=== PATIENT | female | born 1950 | race Caucasian/White ===

== ENCOUNTER 2016-09-19 23:15 | Emergency (ER) | payer OTHER ==
[~2016-09-19] VITALS: Ht 157.5 cm; Wt 122.5 kg
[~2016-09-19 23:15] MED LIST: ALB5IS BC; ASPI81CH43 PO; BACL-63 PO; FLUT110A INH; FURO40TA PO; GABA300C8 PO; GLIP-115 PO; LISI-275 PO; LORA1TAB12 PO; LOVA20TA4 PO; METF-312 PO; MONT10TA34 PO; NOR10T PO; PANT40TA2 PO; POT20T PO; PRED-188 PO; Pantoprazole Sodium Sesquihydr PO; ROFL1TAB2 PO; SULF-98 PO; VER40T PO
[2016-09-20] MEDS ORDERED: LISI2.5T47 PO (00:10)
[2016-09-20] MEDS ORDERED: DIAZ10TA PO (00:10)
[2016-09-20] MEDS ORDERED: CLIN1CAP4 PO (00:10)
[2016-09-20] MEDS ORDERED: MORPHINE SULF INJ 2 MG/ML SYRINGE 1ML IM ONE (03:45)
[2016-09-20] MEDS ORDERED: predniSONE 20 MG TAB PO ONE (03:45)
[2016-09-20 04:12] VITALS: BP 140/66
== END 2016-09-20 04:21 | disposition home or self-care (01) ==
LOC: ER 23:16
DX: J44.1 Chronic obstructive pulmonary disease with (acute) exacerbation (principal); J06.9 Acute upper respiratory infection, unspecified; J45.909 Unspecified asthma, uncomplicated; M54.9 Dorsalgia, unspecified; G89.29 Other chronic pain; F41.9 Anxiety disorder, unspecified; I25.10 Atherosclerotic heart disease of native coronary artery without angina pectoris; J44.9 Chronic obstructive pulmonary disease, unspecified; E11.22 Type 2 diabetes mellitus with diabetic chronic kidney disease; E78.5 Hyperlipidemia, unspecified; I13.0 Hypertensive heart and chronic kidney disease with heart failure and stage 1 through stage 4 chronic kidney disease, or unspecified chronic kidney disease; N18.9 Chronic kidney disease, unspecified; I50.9 Heart failure, unspecified; Z90.49 Acquired absence of other specified parts of digestive tract; E07.9 Disorder of thyroid, unspecified; Z98.51 Tubal ligation status
CPT/HCPCS: 93005; 96372; 99283; J2270; J7512

== ENCOUNTER 2016-09-30 23:31 | Emergency (ER) | payer OTHER ==
[~2016-09-30] VITALS: Ht 162.6 cm; Wt 89.8 kg
[~2016-09-30 23:31] MED LIST changes: +CLIN1CAP4 PO; +DIAZ10TA PO; +LISI2.5T47 PO
[2016-09-30] MEDS ORDERED: methylPREDNISolone SOD SUCC 125 MG/2 ML VL IV ONE (23:45)
[2016-10-01 00:06] LABS: Basophils # (auto) 0.1 uL; Basophils % (auto) 0.7 % (0.0-2.0); Eosinophils # (auto) 0.2 uL; Eosinophils % (auto) 2.2 % (0.0-7.0); Hematocrit 32.9 % (36.0-46.0); Hemoglobin 10.6 g/dL (12.2-16.2); Lymphocytes # (auto) 2.2 uL; Lymphocytes % (auto) 29.6 % (10.0-50.0); Mean Corpuscular Hemoglobin 27.2 pg (28.0-32.0); Mean Corpuscular Hgb Conc. 32.3 g/dL (32.0-36.0); Mean Corpuscular Volume 84.2 fL (80.0-100.0); Mean Platelet Volume 11.1 fL (7.4-10.4); Monocytes # (auto) 0.5 uL; Monocytes % (auto) 7.4 % (0.0-12.0); Neutrophils # (auto) 4.4 uL; Neutrophils % (auto) 60.1 % (37.0-80.0); Platelet Count (auto) 142 10^3/uL (140-450); Red Cell Distribution Width 13.1 % (11.6-16.0); White Blood Cell 7.4 10^3/uL (4.4-10.8)
[2016-10-01] MEDS ORDERED: MORPHINE SULF INJ 2 MG/ML SYRINGE 1ML ONE (00:22)
[2016-10-01 00:24] LABS: Albumin 3.4 g/dL (3.4-5.0); BUN/Creatinine Ratio 25.8; Calcium 8.2 mg/dL (8.5-10.1); Magnesium 1.9 mg/dL (1.6-2.6)
[2016-10-01 00:27] LABS: Bilirubin, Total 0.5 mg/dL (0.2-1.0); Total Protein 7.3 g/dL (6.4-8.2)
[2016-10-01] MEDS ORDERED: ONDANSETRON HCL 4 MG/2 ML VIAL IV ONE ×2 (00:30→04:15)
[2016-10-01] MEDS ORDERED: MORPHINE SULF INJ 2 MG/ML SYRINGE 1ML IV ONE ×2 (00:30→00:45)
[2016-10-01 00:31] LABS: B-Type Natriuretic Peptide 422.35 pg/mL (0-100); Temperature: 21.6 C (20.0-25.0)
[2016-10-01 00:38] LABS: INR 1.04 (0.9-1.15); Partial Thromboplastin Time 31.5 sec (22.64-33.71); Prothrombin Time 10.7 sec (9.37-12.3)
[2016-10-01] MEDS ORDERED: FUROSEMIDE 20 MG/2 ML VIAL IV ONE (04:15)
[2016-10-01] MEDS ORDERED: MORPHINE SULFATE 4 MG/ML SYRG IV ONE (04:15)
[2016-10-01 04:20] VITALS: BP 158/91
[2016-10-01 05:08] LABS: Urine Bilirubin Negative (Negative); Urine Blood Negative /uL (Negative); Urine Color Yellow (Yellow); Urine Glucose Normal (Normal); Urine Ketone Negative (Negative); Urine Nitrite Negative (Negative); Urine RBC <1 /hpf (0 - 4); Urine Squamous Epithelial Cell FEW /hpf (<5); Urine Urobilinogen Normal (Negative); Urine pH 5.5 (5.0-8.0)
[2016-10-01] MEDS ORDERED: ALBUTEROL SULF 2.5 MG/0.5ML(0.5%) NEB SOLN NEB ONE (05:45)
[2016-10-01] MEDS ORDERED: LEVOFLOXACIN 500 MG TAB PO ONE (05:45)
[2016-10-01] MEDS ORDERED: ASPirin 81 mg TAB ONE (13:39)
== END 2016-10-01 07:42 | disposition home or self-care (01) ==
LOC: EDBD 23:31 → ER 23:34
DX: J44.1 Chronic obstructive pulmonary disease with (acute) exacerbation (principal); J45.901 Unspecified asthma with (acute) exacerbation; E66.01 Morbid (severe) obesity due to excess calories; E11.22 Type 2 diabetes mellitus with diabetic chronic kidney disease; I12.9 Hypertensive chronic kidney disease with stage 1 through stage 4 chronic kidney disease, or unspecified chronic kidney disease; N18.9 Chronic kidney disease, unspecified; I25.10 Atherosclerotic heart disease of native coronary artery without angina pectoris; E78.5 Hyperlipidemia, unspecified; E07.9 Disorder of thyroid, unspecified; Z98.61 Coronary angioplasty status
CPT/HCPCS: 36415; 71010; 80053; 81001; 83605; 83735; 83880; 84484; 85025; 85049; 85379; 85610; 85730; 87040; 93005; 94640; 94761; 96374; 96375; 96376; 99285; J1940; J2270; J2405; J2930

== ENCOUNTER 2017-02-16 18:38 | Emergency (ER) | payer OTHER ==
[~2017-02-16] VITALS: Ht 162.6 cm; Wt 99.8 kg
[~2017-02-16 18:38] MED LIST changes: +GABA-497 PO; -GABA300C8 PO; -METF-312 PO; +METF-370 PO
[2017-02-16] MEDS ORDERED: IPRATROPIUM BROM 0.5 MG/2.5ML INH SOL NEB ONE (20:00)
[2017-02-16] MEDS ORDERED: MORPHINE SULFATE 4 MG/ML SYRG IV ONE (20:00)
[2017-02-16] MEDS ORDERED: ONDANSETRON HCL 4 MG/2 ML VIAL IV ONE (20:00)
[2017-02-16] MEDS ORDERED: ALBUTEROL SULF 2.5 MG/0.5ML(0.5%) NEB SOLN NEB ONE (20:00)
[2017-02-16] MEDS ORDERED: diphenhdrAMINE HCL 50 MG/1 ML VL ONE (20:36)
[2017-02-16 20:40] LABS: Basophils # (auto) 0 uL; Basophils % (auto) 0.3 % (0.0-2.0); Eosinophils # (auto) 0 uL; Hematocrit 34.9 % (36.0-46.0); Hemoglobin 11.5 g/dL (12.2-16.2); Lymphocytes # (auto) 0.6 uL; Lymphocytes % (auto) 5.7 % (10.0-50.0); Mean Corpuscular Hemoglobin 28.4 pg (28.0-32.0); Mean Corpuscular Volume 85.8 fL (80.0-100.0); Mean Platelet Volume 11.8 fL (7.4-10.4); Monocytes # (auto) 0.2 uL; Monocytes % (auto) 1.8 % (0.0-12.0); Neutrophils # (auto) 10.4 uL; Neutrophils % (auto) 92.2 % (37.0-80.0); Platelet Count (auto) 153 10^3/uL (140-450); Red Cell Distribution Width 14.4 % (11.6-16.0); White Blood Cell 11.3 10^3/uL (4.4-10.8)
[2017-02-16] MEDS ORDERED: AZITHROMYCIN 500MG/D5W 250ML 250 ML IV ONE (21:15)
[2017-02-16 21:19] LABS: Temperature: 23.5 C (20.0-25.0)
[2017-02-16] MEDS ORDERED: diphenhdrAMINE HCL 50 MG/1 ML VL IV ONE (21:30)
[2017-02-16 21:52] LABS: Albumin 3.4 g/dL (3.4-5.0); Alkaline Phosphatase 58 U/L (45-117); Anion Gap 6 (5-15); Aspartate Aminotransferase 9 U/L (15-37); BUN/Creatinine Ratio 33.8; Bilirubin, Total 0.4 mg/dL (0.2-1.0); Blood Urea Nitrogen 25 mg/dL (7-18); Carbon Dioxide 31 mmol/L (21-32); Chloride 107 mmol/L (98-107); GFR African American 101 mL/min; GFR Non-African American 83 mL/min; Glucose 151 mg/dL (74-106); Magnesium 2.2 mg/dL (1.6-2.6); Potassium 4.9 mmol/L (3.5-5.1); Sodium 144 mmol/L (136-145); Total Protein 6.8 g/dL (6.4-8.2)
[2017-02-16] MEDS ORDERED: HYDROmorphone HCL 2 MG/ML VL IV ONE (22:30)
[2017-02-17] VITALS: BP 147/77
== END 2017-02-17 01:44 | disposition home or self-care (01) ==
LOC: EDBD 18:38 → ER 18:41
DX: J44.1 Chronic obstructive pulmonary disease with (acute) exacerbation (principal); E11.9 Type 2 diabetes mellitus without complications; I11.0 Hypertensive heart disease with heart failure; I50.43 Acute on chronic combined systolic (congestive) and diastolic (congestive) heart failure; H66.92 Otitis media, unspecified, left ear; R51 Headache; E78.5 Hyperlipidemia, unspecified; E07.9 Disorder of thyroid, unspecified; Z98.51 Tubal ligation status; Z79.899 Other long term (current) drug therapy; Z88.0 Allergy status to penicillin; Z88.1 Allergy status to other antibiotic agents
CPT/HCPCS: 36415; 71010; 80053; 83735; 83880; 84443; 84484; 85025; 85379; 93005; 94640; 96365; 96366; 96375; 99291; J0456; J1170; J1200; J2270; J2405

== ENCOUNTER 2017-03-04 19:02 | Emergency (ER) | payer OTHER ==
[~2017-03-04] VITALS: Ht 162.6 cm; Wt 122.5 kg
[2017-03-04 19:42] LABS: Basophils # (auto) 0 uL; Basophils % (auto) 0.1 % (0.0-2.0); CONDITION Y; Eosinophils # (auto) 0 uL; Eosinophils % (auto) 0.1 % (0.0-7.0); Hematocrit 35.1 % (36.0-46.0); Hemoglobin 11.7 g/dL (12.2-16.2); Lymphocytes # (auto) 0.8 uL; Lymphocytes % (auto) 7.8 % (10.0-50.0); Mean Corpuscular Hemoglobin 28.2 pg (28.0-32.0); Mean Corpuscular Hgb Conc. 33.2 g/dL (32.0-36.0); Mean Corpuscular Volume 84.8 fL (80.0-100.0); Mean Platelet Volume 12.1 fL (7.4-10.4); Monocytes # (auto) 0.1 uL; Monocytes % (auto) 1.2 % (0.0-12.0); Neutrophils # (auto) 9.2 uL; Neutrophils % (auto) 90.8 % (37.0-80.0); Platelet Count (auto) 153 10^3/uL (140-450); Red Cell Distribution Width 13.8 % (11.6-16.0); White Blood Cell 10.1 10^3/uL (4.4-10.8)
[2017-03-04 20:05] LABS: Albumin 3.4 g/dL (3.4-5.0); Anion Gap 12 (5-15); Aspartate Aminotransferase 14 U/L (15-37); Blood Urea Nitrogen 24 mg/dL (7-18); Calcium 8.8 mg/dL (8.5-10.1); Carbon Dioxide 27 mmol/L (21-32); Chloride 103 mmol/L (98-107); GFR African American 71 mL/min; GFR Non-African American 59 mL/min; Glucose 193 mg/dL (74-106); Magnesium 1.7 mg/dL (1.6-2.6); Sodium 142 mmol/L (136-145)
[2017-03-04 20:09] LABS: Alkaline Phosphatase 62 U/L (45-117); Bilirubin, Total 0.5 mg/dL (0.2-1.0); Total Protein 7.1 g/dL (6.4-8.2)
[2017-03-04] MEDS ORDERED: IPRATROPIUM BROM 0.5 MG/2.5ML INH SOL NEB ONE (20:30)
[2017-03-04] MEDS ORDERED: ALBUTEROL SULF 2.5 MG/0.5ML(0.5%) NEB SOLN NEB ONE (20:30)
[2017-03-04] MEDS ORDERED: HYDROcodone-ACET 10/325MG TAB PO ONE (22:30)
[2017-03-04] MEDS ORDERED: CLINDAMYCIN HCL 150 MG CAP PO ONE (22:45)
[2017-03-04 23:41] VITALS: BP 134/89
== END 2017-03-05 00:12 | disposition home or self-care (01) ==
LOC: EDBD 19:02 → ER 19:06
DX: H66.92 Otitis media, unspecified, left ear (principal); J02.9 Acute pharyngitis, unspecified; J06.9 Acute upper respiratory infection, unspecified; R07.0 Pain in throat; I25.10 Atherosclerotic heart disease of native coronary artery without angina pectoris; I50.9 Heart failure, unspecified; N18.9 Chronic kidney disease, unspecified; J44.9 Chronic obstructive pulmonary disease, unspecified; E11.22 Type 2 diabetes mellitus with diabetic chronic kidney disease; E78.5 Hyperlipidemia, unspecified; I13.0 Hypertensive heart and chronic kidney disease with heart failure and stage 1 through stage 4 chronic kidney disease, or unspecified chronic kidney disease; E07.9 Disorder of thyroid, unspecified; Z90.710 Acquired absence of both cervix and uterus; Z98.51 Tubal ligation status; Z88.0 Allergy status to penicillin; Z88.1 Allergy status to other antibiotic agents; Z79.899 Other long term (current) drug therapy; Z98.61 Coronary angioplasty status
CPT/HCPCS: 36415; 80053; 83735; 84484; 85025; 93005; 94640